=== PATIENT | female | born 1970 | race Caucasian/White ===

== ENCOUNTER 2025-07-26 11:23 | Outpatient (OUT) | payer BC, SELFPAY ==
--- OUTSIDE RECORDS SUMMARY | 2025-07-26 06:24 | XMS_ITS | Continuity of Care Document ---
Author Organization [facility] Address [address] [place] [address] Phone Care Team Providers Care Switch Adjuster Name Role Phone Bhupinder Aragon MD Attending Provider Bhupinder Aragon MD Primary Care Provider [phone] Care Teams Patient Care Team Team Status: Active Member Role/Relationship Status Dates Bhupinder Aragon MD Primary Care Provider Active Patient Care Team Team Status: Active Member Role/Relationship Status Dates Bhupinder Aragon MD Attending Provider Active Star t: June 13, 2025 Patient Care Team Team Status: Inactive Member Role/Relationship Status Dates Bhupinder Aragon MD Primary Care Provider Active S tart: July 26, 2025 End: July 26, 2025Marc SAHRA Aragonttending ProviderActiveStart: July 26, 2025 End: July 26, 2025 Chief Complaint and Reason for Visit Chief Complaint Admit Date Frequent Falls/Dizzy/Forgetfull July 26, 2025 10:07am Allergies, Adverse Reactions, Alerts Allergen Type Severity Reaction Last Updated Verified Status niacin Allergy Unknown Unknown Reaction July 26, 2025 10:1 7am Yes Active Social History Smoking Status Status Start Date End Date Date of Observa tion Never smoked tobacco (finding) July 26, 2025 10:21am Observation Status Observation Response Date of Response Legal Sex Female (finding) Sex Assigned At BirthFe1969 Problems Active Problems Problem Diagnosis/Recorded Date Onset Date Stat us Frequent falls July 26, 2025 10:49am Unknown Active Lower extremity edema May 31, 2025 7:37am Unknown Active Generalized anxiety disorder May 31, 2025 7:36am Unknown Active Migraine without aura and wi thout status migrainosus, not intractable May 31, 2025 7:37am Unknown Active Hx of foot surgery July 26, 2025 10:20am Unknown Active Primary hypothyroidism May 31, 2025 7:38am Unknow n Active Herpes labialis May 31, 2025 7:36am Unknown Active Onychomycosis May 31, 2025 7:37am Unknown Ac tive Dyslipidemia May 31, 2025 7:35am Unknown Act sendy Expressive aphasia May 31, 2025 7:36am Unknown Active Unsteady gait May 31, 2025 7:38am Unknown Ac tive Fibromyalgia May 31, 2025 7:36am Unknown Act sendy Encounter for long-term (cur rent) use of medications July 26, 2025 10:48am Unknown Active Major depressive disorder, r ecurrent episode, moderate May 31, 2025 7:37am Unknown Active Dyspareunia, female May 31, 2025 7:35am Unknown Active Chronic bilateral low back p ain with bilateral sciatica May 31, 2025 7:35am Unknown Active Altered mental status May 31, 2025 7:35am Unknown Active Gastroesophageal reflux disease May 31, 2025 7:36 am Unknown Active Vitamin D deficiency May 31, 2025 7:38am Unknown Active Obesity May 31, 2025 7:37am Unknown Act sendy Medications Medication Status Dose Units Route Directions Qty Days Refills S tart Date Stop Date End Date Reason(s) Instructions Adherence Atorvastatin 40 mg tablet Active 40 MG PO Daily May 30, 2025 11:00pmComplies with drug therapyAcyclovir 400 mg tabletActive 400MGPOTwice dailyOctober 2024 11:00pmComplies with drug therapy Amitriptyline 100 mg nnuedwSxpwtxfwclgy805ECIAAlmwa at bedtimeOct2024 11:00pmOctober 2024 8:36amBupropion Hcl 300 mg tablet extended release 24 erZbysom607YKLZIggqb morningOct2024 11:00pmComplies with drug therapy Atogepant 60 mg mzgxyiAesrewqvxzpn49OLWUDnhxrOalfeew 2024 11:00pmDece2024 10:53amCelecoxib 200 mg wyeusezQshatmaznijz569QWDJPdtps dailyOctober 2024 11:00pmOctober 2024 1:48pmFurosemide 40 mg isgikdCwfdxifglndz81 MGPODailyOct2024 11:00pmOctober 2024 12:01pmVenlafaxine 75 mg capsule,extended release 23gcKzdanv65WSSHUnfgvTfeoahb 7th, 2025 11:00pmComplies with drug therapyGabapentin 600 mg azfnhcZezeenwpsbsd057NEXJQidcp times daily May 30, 2025 11:00pmOctober 2024 3:24pmTizanidine 4 mg tablet Fqydmqvpjzdv4QWTODgvzs at bedtime as neededOct2024 11:00pmOctober 2024 1:47pmSertraline 100 mg rsetcuMcjtjb741DNYXFdxks dailyOct2024 11:00pmComplies with drug therapyKetorolac 10 mg satexhQbzjfc35GIAWFyyyo 6 hoursOct2024 11:00pmmaximum total duration of 5 days from all oral, intranasal, or parenteral formulationsComplies with drug therapyLevothyroxine 50 mcg ypvmabVmjkcf31GXTGELxfykOdpondl 7th, 2025 11:00pmComplies with drug therapy Pantoprazole 40 mg tablet,delayed release (DR/EC)Ybnydd60FEYUJqgeu dailyOct2024 11:00pmComplies with drug therapyPromethazine 25 mg nnfcvmGnhvtn28XHAE Every 6 hours as neededOct2024 11:00pmComplies with drug therapy Lorazepam 1 mg ljnqmrRqgnbr7KCRXSigne times daily as neededOct2024 11:00pmComplies with drug therapySpironolactone 50 mg fribrhLzuobw45JGXTBovzw May 30, 2025 11:00pmComplies with drug therapyCholecalciferol (Vitamin D3) 50 mcg (2,000 unit) nrqwalIwkkio35CIDDHEnwknFddusqb 7th, 2025 11:00pmComplies with drug therapyVenlafaxine 37.5 mg tablet extended release 30htDdtheu33.5MGPO DailyOct2024 11:00pmComplies with drug therapyQuetiapine 150 mg tablet Oknnrx387FYTDVwjwt at bedtimeOct2024 11:00pmComplies with drug therapy Gabapentin 600 mg mjdnrzObhwga025OFLSYapyt times aablg524Hcxuvui 2024 3:23pmComplies with drug therapyTizanidine 4 mg uiiskiHpekwv9UHBSGscdn at bedtime as needed for muscle piguwjwiiz496Rgntzyh 2024 1:46pmComplies with drug therapyCelecoxib 200 mg ipjgmswGlkilo612MJAMGyaxx rfzwz241Ecitfjx 2024 1:47pmComplies with drug therapyAmitriptyline 100 mg wwbtpmSevgtf031NBCG Daily at udbnsod60296Hslkqwr 2024 8:35amComplies with drug therapy Furosemide 40 mg nhwuvqLbstcm81CIVSZvcuu230Nvmzyph 2024 12:00pmComplies with drug therapy Vital Signs Vital Reading Result Reference Range Collection Date/Time Height 63 [in_i] July 26, 2025 10:18gdXzsene05.86 kgDeceb[facility] 2024 10:16amBody Jxiwylrxjmz67.1 [degF]97.6-99.0[facility] 2024 10:16amHeart Rate93 /asi89-333 July 26, 2025 10:16amRespiratory rate20 /ppw47-35Ehopkfeb 2024 10:16am Oxygen saturation by Pulse smnadntg74 %95-1002024 10:16amBP Xgdotvpr169 mm[Hg]100-140[facility] 2024 10:16amBP Kszzsrhbm41 mm[Hg]60-100 July 26, 2025 10:16amBMI (Body Mass Index)25.3 kg/o9Ykrbmjko 2024 10:16am Advance Directives Advance Directive Response Recorded Date/ Time Advance Directives No July 24, 2025 8:08am Insurance Providers Guarantor Elle Prater Address [address] [facility] [address] [facility] [address]Qvesnuj Info.Home Phone: Coverage Status Update:2025 Payer Group Member ID Coverage Type Subscriber Relationship to Subscriber Effective Date Expiration Date Truong MATA Id: [id number] Mertes Id: [id number] [address] [address] Home Phone: Encounters Encounter Location(s) Arrival/Admit Date Discharge/Departure Date Discharge/Departure Disposition Provider(s) Non-patient / Non-visit -[facility] Altaf Glass leni2024 11:59pm ZAIN Vueparted Physician/Provider Office Visit-[facility] 2024 11:07amDischarged to home care or self care (routine discharge)Bhupinder Aragon MD Plan of Treatment Future Tests Future scheduled test information is unavailable Pending Tests Test Name Ordered Date Scheduled Date ADOLFO with Reflex July 26, 2025 10:44am MR head/brain wo conD2024 10:49amComprehensive Metabolic Panel July 26, 2025 10:44amRheumatoid FactorDe2024 10:46am Future Visits Future appointment information is unavailable Future Procedures Procedure Name Ordered Date Scheduled Date A1C with Estimated Average Glu July 26 10:46am Complete Blood Count Auto DiffDece2024 10:44amErythrocyte Sedimentation RateD2024 10:44amIron and TIBC ProfileD2024 10:44amLipid [facility]Dem[facility]2024 10:46amMagnesiumDece2024 10:46amTriiodothyronine (T3) [facility]2024 10:48amFree T4 (Free Thyroxine)July 26, 2025 10:44amThyroid Stimulating HormoneDemunising memorial hospital2024 10:44amVit. B12/Folate ProfileD2024 10:44am Future Medications Future medication information is unavailable Patient Instructions Patient instructions are unavailable
--- OUTSIDE RECORDS SUMMARY | 2025-07-26 11:31 | XMS_ITS | Clinical Summary ---
Author Organization [facility] Address [address] [place] [address] Care Team Providers Care Summer Law Associate Name Role Phone Bhupinder Aragon MD Primary Care Provider Bhupinder Aragon MD Unavailable Allergies Active AllergyReactionsCriticalityNoted VcinNvxuajbcWbyrus62/12/2024 Medications MedicationSigDispense QuantityRefillsLast FilledStart DateEnd DateStatus acyclovir (Zovirax) 400 MG tablet Take 400 mg by mouth in the morning and 400 mg before bedtime.Active cholecalciferol (Vitamin D-3) 50 MCG (1999) tablet Take 2,000 Units by mouth in the morning.Active furosemide (Lasix) 40 MG tablet Indications:Edema legTAKE 1 TABLET BY MOUTH EVERY DAY 90 tablet 4Active atorvastatin (Lipitor) 40 MG tablet Indications:DyslipidemiaTake 1 tablet (40 mg) by mouth Daily 90 tablet 4Active pantoprazole (ProtoNix) 40 MG EC tablet Indications:Gastroesophageal reflux disease without esophagitisTAKE 1 TABLET BY MOUTH TWICE A DAY 180 tablet 5Active sertraline (Zoloft) 100 MG tablet Indications:Depression, unspecified depression typeTAKE 1 TABLET BY MOUTH TWICE A DAY 180 tablet 5Active ketorolac (Toradol) 10 MG tablet Indications:Migraine without aura and without status migrainosus, not intractableTake 1 tablet (10 mg) by mouth every 6 (six) hours if needed for moderate pain or severe pain 20 tablet 5Active gabapentin (Neurontin) 600 MG tablet Indications:FibromyalgiaTake 1 tablet (600 mg) by mouth in the morning and 1 tablet (600 mg) in the evening and 1 tablet (600 mg) before bedtime. 90 tablet 5Active buPROPion XL (Wellbutrin XL) 300 MG 24 hr tablet Indications:Major depressive disorder, recurrent episode, moderate (HCC)TAKE 1 TABLET BY MOUTH EVERY DAY DO NOT CRUSH,CHEW OR SPLIT 90 tablet 5Active amitriptyline (Elavil) 100 MG tablet Indications:Migraine without aura and without status migrainosus, not intractableTAKE 1 TABLET BY MOUTH AT BEDTIME 90 tablet 5Active LORazepam (Ativan) 1 MG tablet Indications:Generalized anxiety disorderTake 1 tablet (1 mg) by mouth 3 (three) times a day as needed for anxiety 90 tablet 5Active promethazine (Phenergan) 25 MG tablet Indications:Migraine without aura and without status migrainosus, not intractableTake 1 tablet (25 mg) by mouth every 6 (six) hours if needed for nausea or vomiting 60 tablet 5Active Atogepant (Qulipta) 60 MG tablet Indications:Migraine without aura and without status migrainosus, not intractableTake 60 mg by mouth Daily 30 tablet 505Active spironolactone (Aldactone) 50 MG tablet Indications:Leg edemaTAKE 1 TABLET BY MOUTH EVERY DAY NEEDED 90 tablet 5Active levothyroxine (Synthroid, Levoxyl) 50 MCG tablet Indications:Primary hypothyroidismTAKE 1 TABLET BY MOUTH EVERY DAY 90 tablet 5Active venlafaxine XR (Effexor XR) 37.5 MG 24 hr capsule Indications:Major depressive disorder, recurrent episode, moderate (HCC)Take 1 capsule (37.5 mg) by mouth Daily 90 capsule 5Active venlafaxine XR (Effexor XR) 75 MG 24 hr capsule Indications:Major depressive disorder, recurrent episode, moderate (HCC)Take 1 capsule (75 mg) by mouth Daily 30 capsule /6Active tiZANidine (Zanaflex) 4 MG tablet Indications:FibromyalgiaTAKE 1 TABLET BY MOUTH AT BEDTIME 30 tablet 5Active celecoxib (CeleBREX) 200 MG capsule Indications:Chronic bilateral low back pain with bilateral sciaticaTAKE 1 CAPSULE BY MOUTH TWICE A DAY NEEDED 60 capsule 5Active QUEtiapine Fumarate 150 MG tablet Indications:Major depressive disorder, recurrent episode, moderate (HCC)TAKE 1 TABLET BY MOUTH AT BEDTIME 30 tablet 5Active Active Problems ProblemNoted DateDiagnosed DateAltered mental lhjbmm1203/29/2024 Assessment & Plan (06/08/2024 10:35 AM EDT): Continued symptoms and unclear etiology. MRI brain normal. Refer to neurology. Possibly related to mental health problems. Assessment & Plan (03/29/2024 2:27 PM EDT): Developed confusion and problems with speech. Unclear etiology and check MRI brain. Expressive fevujbz6803/29/2024 Assessment & Plan (03/29/2024 2:27 PM EDT): Developed confusion and problems with speech. Unclear etiology and check MRI brain. Unsteady gait03/29/2024Lower extremity edema09/08/2023 Assessment & Plan (08/31/2024 7:56 AM EST): Edema controlled with medication and continue. Elevate legs PRN. Assessment & Plan (01/21/2024 10:12 AM EDT): Edema controlled with medication and continue. Elevate legs PRN. Assessment & Plan (11/04/2023 12:18 PM EDT): Edema controlled with medication and continue. Elevate legs PRN. Assessment & Plan (09/08/2023 10:10 AM EST): Edema controlled with medication and continue. Elevate legs PRN. Chronic bilateral low back pain with bilateral pdnqckev38/16/2024Migraine without aura and without status migrainosus, not gbfyykegwfn90/16/2024 Assessment & Plan (02/27/2025 9:11 AM EDT): Worsening SHEPPARD and try qulipta. Use toradol and phenergan PRN. Assessment & Plan (11/28/2024 9:15 AM EDT): SHEPPARD stable and continue fioricet PRN. Assessment & Plan (08/31/2024 7:56 AM EST): SHEPPARD stable and continue fioricet PRN. Assessment & Plan (02/23/2024 10:14 AM EDT): SHEPPARD worse with increased stress and continue fioricet PRN. Assessment & Plan (01/21/2024 10:12 AM EDT): SHEPPARD worse with increased stress and continue fioricet PRN. Assessment & Plan (11/04/2023 12:19 PM EDT): SHEPPARD stable and use fioricet PRN. Assessment & Plan (09/08/2023 10:11 AM EST): SHEPPARD unchanged and likely triggered by stress. Increase elavil and use fioricet PRN. Zqmvsaszvqlm74/16/2024yspareunia, drmruu7809/08/2023Generalized anxiety disorder 09/08/2023 Assessment & Plan (02/27/2025 9:10 AM EDT): Symptoms stable and follow with psychiatry. Assessment & Plan (11/28/2024 9:15 AM EDT): Symptoms stable and follow with psychiatry. Assessment & Plan (08/31/2024 7:55 AM EST): Symptoms stable and follow with psychiatry. Assessment & Plan (06/08/2024 10:36 AM EDT): Worsening stress and follow with psychiatry. Assessment & Plan (03/29/2024 2:26 PM EDT): Worsening stress and return to psychiatry. Assessment & Plan (02/23/2024 10:14 AM EDT): Mood unchanged and continue medication. Follow up with psychiatry. Use ativan PRN. Assessment & Plan (01/21/2024 10:11 AM EDT): Mood worse and increase seroquel. Continue other medication and follow up with psychiatry. Assessment & Plan (11/04/2023 12:18 PM EDT): Symptoms stable and continue medication. Use ativan PRN. Assessment & Plan (09/08/2023 10:10 AM EST): Symptoms unchanged and follow up with psychiatry to adjust medication. Use ativan PRN. Gastroesophageal reflux kefrzed6309/08/2023Herpes /16/2024rimary oilyzsivsukgtt37/16/2024Major depressive disorder, recurrent episode, moderate 09/08/2023 Assessment & Plan (02/27/2025 9:10 AM EDT): Symptoms stable and follow with psychiatry. Assessment & Plan (11/28/2024 9:15 AM EDT): Symptoms stable and follow with psychiatry. Assessment & Plan (08/31/2024 7:55 AM EST): Symptoms stable and follow with psychiatry. Assessment & Plan (06/08/2024 10:36 AM EDT): Worsening stress and follow with psychiatry. Assessment & Plan (02/23/2024 10:14 AM EDT): Mood unchanged and continue medication. Follow up with psychiatry. Assessment & Plan (01/21/2024 10:11 AM EDT): Mood worse and increase seroquel. Continue other medication and follow up with psychiatry. Assessment & Plan (11/04/2023 12:18 PM EDT): Mood improved with medication and continue. Follow up with psychiatry as scheduled. Assessment & Plan (09/08/2023 10:10 AM EST): Symptoms unchanged and follow up with psychiatry to adjust medication. Ydzkakbibxtsp57/16/2024Vitamin D rewfnjxrar02/16/5366Akkhpcbxssrw30/16/2024 Assessment & Plan (02/27/2025 9:10 AM EDT): Pain unchanged and continue neurontin. Continue with increased activity. Assessment & Plan (11/28/2024 9:15 AM EDT): Pain unchanged and continue neurontin. Continue with increased activity. Assessment & Plan (08/31/2024 7:55 AM EST): Pain unchanged and continue neurontin. Continue with increased activity. Assessment & Plan (06/08/2024 10:35 AM EDT): Pain unchanged and continue neurontin. Continue with increased activity. Assessment & Plan (02/23/2024 10:13 AM EDT): Pain unchanged and continue neurontin. Continue with increased activity. Assessment & Plan (01/21/2024 10:11 AM EDT): Increased pain and increase neurontin. Continue with increased activity. Assessment & Plan (11/04/2023 12:18 PM EDT): Pain improved with increased neurontin and continue. Assessment & Plan (09/08/2023 10:10 AM EST): Pain unchanged and increased neurontin and elavil. Need to walk and stay active. Use zanaflex PRN. Obesity (BMI 30-39.9)09/08/2023 Family History Medical HistoryRelationNameCommentsCancerFatherDiabetesFatherStrokeFather HypertensionMotherRelationNameStatusCommentsFatherDeceasedMother Social History Tobacco UseTypesPacks/DayYears UsedDateSmoking Tobacco: NeverSmokeless Tobacco: Never Tobacco Cessation:Counseling Given: Not Answered Humiliation, Afraid, Rape, and Kick questionnaireAnswerDate RecordedWithin the last year, have you been afraid of your partner or ex-partner?No09/03/2023Within the last year, have you been humiliated or emotionally abused in other ways by your partner or ex-partner?No09/03/2023Within the last year, have you been kicked, hit, slapped, or otherwise physically hurt by your partner or ex-partner?No09/03/2023Within the last year, have you been raped or forced to have any kind of sexual activity by your partner or ex-partner?No09/03/2023 Social Connection and Isolation PanelAnswerDate RecordedIn a typical week, how many times do you talk on the phone with family, friends, or neighbors?More than three times a week09/03/2023How often do you get together with friends or relatives?Once a week09/03/2023How often do you attend sabianism or hindu services?1 to 4 times per year09/03/2023o you belong to any clubs or organizations such as sabianism groups, unions, fraternal or athletic groups, or school groups?No09/03/2023How often do you attend meetings of the clubs or organizations you belong to?Never09/03/2023re you , , , , never , or living with a partner?Blcacyv3709/03/2023UDIT-C AnswerDate RecordedQ1: How often do you have a drink containing alcohol?Never 09/03/2023Q2: How many drinks containing alcohol do you have on a typical day when you are drinking?Patient does not drink09/03/2023Q3: How often do you have six or more drinks on one occasion?Never09/03/2023Overall Financial Resource Strain (CARDIA)AnswerDate RecordedHow hard is it for you to pay for the very basics like food, housing, medical care, and heating?Somewhat hard09/03/2023 PHQ-2AnswerDate RecordedPatient Health Questionnaire-2 Mggjg79609/08/2023[facility] [place] [facility] - Occupational Stress QuestionnaireAnswerDate RecordedDo you feel stress - tense, restless, nervous, or anxious, or unable to sleep at night because yourmind is troubled all the time - these days?Very much 09/03/2023Exercise Vital SignAnswerDate RecordedOn average, how many days per week do you engage in moderate to strenuous exercise (like a brisk walk)?1 day 09/03/2023On average, how many minutes do you engage in exercise at this level? 10 min09/03/2023Hunger Vital SignAnswerDate RecordedWithin the past 12 months, you worried that your food would run out before you got the money to buymore. Never true09/03/2023Within the past 12 months, the food you bought just didn't last and you didn't have money to get more.Never true09/03/2023RAPARE - TransportationAnswerDate RecordedIn the past 12 months, has lack of transportation kept you from medical appointments or from getting medications?No 09/03/2023In the past 12 months, has lack of transportation kept you from meetings, work, or from getting things needed for daily living?No09/03/2023 Housing Stability Vital SignAnswerDate RecordedIn the last 12 months, was there a time when you were not able to pay the mortgage or rent on time?No09/03/2023In the last 12 months, how many places have you lived?In the last 12 months, was there a time when you did not have a steady place to sleep or slept in [facility] (including now)?No09/03/2023CommentsUnknownSex and Gender InformationValueDate RecordedSex Assigned at BirthNot on fileLegal SexFemale 03/17/2023 8:08 AM EDTGender IdentityNot on fileSexual OrientationNot on file Last Filed Vital Signs Vital SignReadingTime TakenCommentsBlood Ptdnvbzs355/6207 8:31 AM EDT Fgbjm8651 8:31 AM PQVHuiqhiwrnsh97.3 ??C (97.3 ??F)02/27/2025 8:31 AM EDTRespiratory Sxgz382202/27/2025 8:31 AM EDTOxygen Ngeofgsnts45%02/27/2025 8:31 AM EDTInhaled Oxygen Concentration--Fbonsi25.4 kg (186 lb)02/27/2025 8:31 AM EDT Putjhc065 cm (5' 3 )02/27/2025 8:31 AM EDTBody Mass Index32.9507 8:31 AM EDT Plan of Treatment Health MaintenanceDue DateLast DoneCommentsCT Ukwgjzxgvkiz1969FIT-DNA 1969FIT1969FOBT04/19/19693110Cwaddfofkiwzs88/27/8358Lpgmjdigp70/27/2009 COVID-19 Vaccine ( season)2025Influenza Vaccine (#1)2025 Oiyljujdyuo89olorectal Cancer Tvxqfjenq49/28/2032neumococcal Vaccine: Pediatrics (0 to 5 Years) and At-Risk Patients (6 to 64 Years)Aged Out No longer eligible based on patient's age to complete this topic Goals GoalPatient Goal TypeAssociated ProblemsRecent ProgressPatient-Stated?Author Help patient manage antidepressant medication Care PlanPatient on antidepressant monitoring planKeyanna Fry Additional Health Concerns Active ProblemsNoted DateDiagnosed DatePatient on antidepressant monitoring plan 02/27/[address] [place] [address] Care Teams Team MemberRelationshipSpecialtyStart DateEnd Date Bhupinder Aragon MD PCP - GeneralFamily Medicine11/04/23 Bhupinder Aragon MD [address] [place] [address] PCP - [employer]10/22/24
[2025-07-26 12:21] LABS: Hematocrit 36.2 % (36.0-48.0); Hemoglobin 12.0 g/dL (12.0-16.0); Immature Granulocytes Abs Auto 0.03 10^3/uL (0.00-0.03); Immature Granulocytes Pct Auto 0.8 % (0.0-0.5); Lymphocytes Absolute Auto 1.0 10^3/uL (1.2-3.8); Mean Corpuscular HGB Conc 33.1 g/dL (29.9-35.2); Mean Corpuscular Hemoglobin 31.7 pg (26.7-34.0); Mean Corpuscular Volume 95.8 fL (81.0-99.0); Platelet Count 214 10^3/uL (150-450); Red Blood Count 3.78 10^6/uL (4.20-5.40); White Blood Count 4.0 10^3/uL (4.0-11.0)
[2025-07-26 12:53] LABS: Alanine Aminotransferase 24 U/L (14-59); Albumin Globulin Ratio 1.0; Albumin Level 3.7 g/dL (3.4-5.0); Alkaline Phosphatase 118 U/L (46-116); Anion Gap 12.9; Aspartate Amino Transferase 18 U/L (15-37); Blood Urea Nitrogen 10.0 mg/dL (7.0-18.0); Calcium 9.1 mg/dL (8.5-10.1); Carbon Dioxide 32.3 mmol/L (21.0-32.0); Chloride 101 mmol/L (98-107); Cholesterol 159 mg/dL (<=200); Estimated GFR (African America 42 (>=60 mL/min/1.73m^2); Estimated GFR (Non-African Ame 34 (>=60 mL/min/1.73m^2); Free T3 1.71 pg/mL (2.18-3.98); Globulin 3.6 g/dL; Glucose 87 mg/dL (74-106); HDL Cholesterol 59 mg/dL (40-60); Magnesium 2.1 mg/dL (1.8-2.4); Potassium 3.2 mmol/L (3.5-5.1); Sodium 143 mmol/L (136-145); Thyroid Stimulating Hormone 0.854 uIU/mL (0.358-3.740); Total Protein 7.3 g/dL (6.4-8.2); Triglycerides 134 mg/dL (<=150); VLDL CHOLESTEROL 26.8 mg/dL
[2025-07-26 13:00] LABS: Iron 56.0 ug/dL (50.0-170.0); Percent Iron Saturation 23.4 %; Total Iron Binding Capacity 239.0 ug/dL (250.0-450.0)
[2025-07-26 13:16] LABS: Folate 3.30 ng/mL (8.60-58.90)
[2025-07-27 04:08] LABS: Vitamin B12 568 pg/mL (232-1245)
== END 2025-07-26 11:24 | disposition home or self-care (01) ==
PROVIDERS: Family Provider Family Medicine; PCP Family Medicine; Visit Provider Family Medicine
DX: Z79.899 Other long term (current) drug therapy (principal); E03.9 Hypothyroidism, unspecified; R47.01 Aphasia; E78.5 Hyperlipidemia, unspecified; R41.82 Altered mental status, unspecified; R29.6 Repeated falls
CPT/HCPCS: 36415; 80053; 80061; 82607; 82746; 83036; 83540; 83550; 83735; 84439; 84443; 84481; 85025; 85652; 86038; 86431